=== PATIENT | male | born 1980 | race Caucasian/White ===

== ENCOUNTER → 2019-03-20 | Outpatient (CLI) | payer SELFPAY ==
--- NOTE | 2019-03-20 16:24 | PCVCIMAG ---
APPROVED REPORT Study performed: 03/20/2019 14:38:28 EXAM: Comprehensive 2D, Doppler, and color-flow Echocardiogram Patient Location: Echo lab Room #: 2Status: routine BSA: 2.38 HR: 90 bpmBP: 136/90 mmHg Rhythm: NSR Other Information Study Quality: Good Risk Factors: Cardiac Risk Factors: Hyperlipidemia, elevated Cor Ca+ score,Fam hx early onset Indications Dyspnea CAD CAD by cor ca+ score, 2D Dimensions IVSd: 7.74 (7-11mm)LVOT Diam: 24.85 (18-24mm) LVDd: 53.25 mm PWd: 8.89 (7-11mm)Ascending Ao: 28.13 (22-36mm) LVDs: 37.10 (25-40mm) Left Atrium: 38.14 (27-40mm) Aortic Root: 24.74 mm LV Single Plane 4CH: 54.74 % LV Single Plane 2CH: 59.51 % Biplane EF: 57.0 % Volumes Left Atrial Volume (Systole) Single Plane 4CH: 44.84 mLSingle Plane 2CH: 37.30 mL Biplane LA Volume: 42.00 mLLA ESV Index: 18.00 mL/m2 Aortic Valve AoV Peak Gerard.: 1.38 m/s AO Peak Gr.: 8.19 mmHgLVOT Max P.35 mmHg LVOT Max V: 0.92 m/s JAY Vmax: 3.22 cm2 Mitral Valve E/A Ratio: 0.9 MV Decel. Time: 206.86 ms MV E Max Gerard.: 0.55 m/s MV A Gerard.: 0.60 m/s IVRT: 58.82 ms TDI E/Lateral E': 5.00E/Medial E': 5.00 Medial E' Gerard.: 0.11 m/s Lateral E' Gerard.: 0.11 m/s Pulmonary Valve PV Peak Gerard.: 0.97 m/sPV Peak Gr.: 3.79 mmHg Pulmonary Vein P Vein S: 0.50 m/sP Vein A: 0.71 m/s P Vein D: 0.56 m/sP Vein A Dur.: 76.1 msec P Vein S/D Ratio: 0.89 Tricuspid Valve TV Vmax: 0.71 m/s Left Ventricle The left ventricle is normal size. There is normal LV segmental wall motion. There is normal left ventricular wall thickness. Left ventricular systolic function is normal. The left ventricular ejection fraction is within the normal range. LVEF is 55-60%. The left ventricular diastolic function is normal. Right Ventricle The right ventricle is normal size. The right ventricular systolic function is normal. Atria The left atrium size is normal. The right atrium size is normal. Aortic Valve Aortic valve is trileaflet. The aortic valve is normal in structure. No aortic regurgitation is present. There is no aortic valvular stenosis. Mitral Valve The mitral valve is normal in structure. There is no mitral valve regurgitation noted. No evidence of mitral valve stenosis. Tricuspid Valve The tricuspid valve is normal in structure. No tricuspid regurgitation Pulmonic Valve The pulmonary valve is normal in structure. There is no pulmonic valvular regurgitation. Great Vessels The aortic root is normal in size. The ascending aorta is normal in size. Aortic arch is normal in caliber. IVC is normal in size and collapses >50% with inspiration. Pericardium There is no pericardial effusion. There is no pleural effusion. <Conclusion> The left ventricle is normal size. There is normal left ventricular wall thickness. Left ventricular systolic function is normal. The left ventricular diastolic function is normal. The right ventricle is normal size. The left atrium size is normal. The aortic valve is normal in structure. The mitral valve is normal in structure. No tricuspid regurgitation
--- NOTE | 2019-03-20 16:32 | PCVCIMAG ---
APPROVED REPORT Study performed: 03/20/2019 15:27:48 Exam: Stress Echocardiogram Indication: Dyspnea , Hyperlipidemia,strong family Hx early onset CAD Patient Location: Echo lab Stress Nurse: Ban Suazo RN Room #: 2 Status: routine Ht: 5 ft 11 in HR: 90 bpm BP: 136/90 mmHg Rhythm: NSR Medical History Medical History: CAD non obstructive(elevated Cor Ca+ score),, Hyperlipidemia Cardiac Risk Factors: FHX of CAD, Hyperlipidemia Previous Cardiac Procedures: none Pretest Chest Pain Characteristics: No chest pain Exercise History: Sedentary Procedure The patient underwent an Exercise Stress Test using the Blayne Protocol. Blood pressure, heart rate, and EKG were monitored. An Echocardiogram was performed by health type technician in four stages in quad fashion. At peak stress, four selected images were obtained and placed side by side with resting images for comparison. Stress Test Details Stress Test: Exercise stress testing was performed using a Blayne protocol. HR Resting HR: 90 bpmMax Heart Rate (APMHR): 182 bpm Max HR Achieved: 173 bpmTarget HR (85% APMHR): 154 bpm % of APMHR: 95 Recovery HR: 113 bpm HR response to stress: Normal HR response to stress BP Resting BP: 136/90 mmHg Max BP: 162/90 mmHg Recovery BP: 122/78 mmHg BP response to stress: Normal blood pressure response to stress. ECG Resting ECG: Sinus Rhythm Stress ECG: Sinus Rhythm, nonspecific ST-T abnormalities ST Change: Non-ischemic Arrhythmia: Occasional PACs Recovery ECG: Sinus Rhythm Recovery ST Change: Non-ischemic Recovery Arrhythmia: Rare PACs Clinical Reason for Termination: Maximal effort Stress Symptoms: dyspnea,fatigue Exercise duration: 9 min 00 sec Highest Stage Achieved: Stage 3: 3.4 mph at 14% grade. Exercise capacity: 10.4 METs Overall Exercise Capacity for Age: Average Scale: Sedentary Angina Score: None No complications. Stress ECG Conclusion The patient exercised according to the BLAYNE protocol for 9:00 mins; achieving a work level of 10.4 METS. The resting heart rate of 90 bpm lulu to a maximum heart rate of 173 bpm. This value represent 95% of the maximal, age-predicted heart rate. The resting blood pressure of 136/90 mmHg, lulu to a maximum blood pressure of 162/90 mmHg. The exercise test was stopped due to fatigue. Pre-Stress Echo The resting Echocardiogram showed normal left ventricular contractility with an estimated Ejection Fraction of about 55-60%. Normal wall motion in all segments on baseline images. Post-Stress Echo The stress Echocardiogram showed normal left ventricular contractility with an estimated Ejection Fraction of about 65-70%. Normal augmentation of wall motion in all segments on post stress images. Clinical No clinical or ECG evidence for ischemia. Conclusion Clinical Response: Non-ischemic Exercise Capacity: Average Stress ECG Response: Non-ischemic Stress Echo Images: Non-ischemic No clinical, EKG or echocardiographic evidence for ischemia. . No prior study available for comparison. <Conclusion> No clinical, EKG or echocardiographic evidence for ischemia. .
== END | disposition home or self-care (01) ==
LOC: PCVCIMAG 13:00
PROVIDERS: ATTEND Internal Medicine Cardiovascular Disease
DX: I25.10 Atherosclerotic heart disease of native coronary artery without angina pectoris (principal); R06.09 Other forms of dyspnea; E78.5 Hyperlipidemia, unspecified
CPT/HCPCS: 93306; 93351